=== PATIENT | female | born 1965 ===

== ENCOUNTER 2023-09-27 07:40 | Day surgery (SDC) | payer OTHER ==
[~2023-09-27 07:40] MED LIST: PAXIL PO; RESTORIL30 M1 PO
[2023-09-27] MEDS ORDERED: IBU600 MG PO (12:36)
== END 2023-09-27 16:30 | disposition home or self-care (01) ==
LOC: CIR.AMB 07:40
PROVIDERS: ATTEND Obstetrics & Gynecology Gynecology
DX: N84.0 Polyp of corpus uteri (principal); N84.1 Polyp of cervix uteri; Z88.6 Allergy status to analgesic agent; N95.0 Postmenopausal bleeding; Z20.822 Contact with and (suspected) exposure to COVID-19